=== PATIENT | male | born 1955 | race Caucasian/White ===

== ENCOUNTER → 2018-08-20 | Outpatient (REF) | payer MEDICARE ==
[2018-08-20 12:14] LABS: BASO # 0.1 10^3/uL (0.0-0.2); BASO % 0.7 % (0.0-1.0); EOS # 0.4 10^3/uL (0.0-0.50); EOS % 3.9 % (0.0-3.0); HEMOGLOBIN 16.9 g/dl (13.5-17.5); LYMPH # 1.9 10^3/uL (1.5-4.5); LYMPH % 20.4 % (24.0-44.0); MEAN CORPUSCULAR HEMOGLOBIN 32.8 pg (27.0-33.0); MEAN CORPUSCULAR HGB CONC 34.5 g/dl (32.0-36.5); MEAN CORPUSCULAR VOLUME 95.1 fl (80.0-96.0); NEUTROPHILS % 63.5 % (36.0-66.0); PLATELET COUNT, AUTOMATED 171 10^3/uL (150-450); RED BLOOD COUNT 5.15 10^6/uL (4.30-6.10); WHITE BLOOD COUNT 9.5 10^3/uL (4.0-10.0)
[2018-08-20 12:36] LABS: ALBUMIN 3.8 GM/DL (3.2-5.2); ALT/SGPT 36 U/L (12-78); BILIRUBIN,TOTAL 0.6 MG/DL (0.2-1.0); BLOOD UREA NITROGEN 15 MG/DL (7-18); CALCIUM LEVEL 8.2 MG/DL (8.8-10.2); CARBON DIOXIDE LEVEL 27 MEQ/L (21-32); CHLORIDE LEVEL 106 MEQ/L (98-107); CHOLESTEROL LEVEL 167 MG/DL (<200); CHOLESTEROL RISK RATIO 3.479 (<5); CREATININE FOR GFR 1.13 MG/DL (0.70-1.30); FREE T4 0.97 NG/DL (0.76-1.46); GLOMERULAR FILTRATION RATE > 60.0 (>49); GLUCOSE, FASTING 101 MG/DL (70-100); HDL CHOLESTEROL 48 MG/DL (>40); LDL CHOLESTEROL 100 MG/DL (<100); NON-HDL-C 119 MG/DL; POTASSIUM SERUM 4.3 MEQ/L (3.5-5.1); SODIUM LEVEL 139 MEQ/L (136-145); TOTAL PROTEIN 7.3 GM/DL (6.4-8.2); TRIGLYCERIDES LEVEL 97 MG/DL (<150)
== END ==
LOC: M SFHCCLAY 08:20
PROVIDERS: ATTEND Nurse Practitioner Family
DX: R03.0 Elevated blood-pressure reading, without diagnosis of hypertension (principal); R06.09 Other forms of dyspnea; F17.200 Nicotine dependence, unspecified, uncomplicated

== ENCOUNTER → 2018-08-20 | Outpatient (CLI) | payer MEDICARE ==
--- NOTE | 2018-08-20 09:24 | REP ---
Chest two views HISTORY: Dyspnea Comparison: None The lungs are clear. The heart is normal in size. The pulmonary vasculature is normal in appearance. Degenerative change is present in the thoracic spine. The lungs are hyperinflated. IMPRESSION: No acute disease.
== END ==
LOC: M CLY 08:53
PROVIDERS: ATTEND Nurse Practitioner Family
DX: M51.34 Other intervertebral disc degeneration, thoracic region (principal); R06.09 Other forms of dyspnea; F17.200 Nicotine dependence, unspecified, uncomplicated
CPT/HCPCS: 71046; 80053; 80061; 84439; 84443; 85025; 90670; G0009; G0463

== ENCOUNTER → 2018-09-02 | Outpatient (CLI) | payer MEDICARE ==
--- NOTE | 2018-09-02 13:31 | REP ---
Clinical: Lung screening. History smoking. Comparison: None Technique: Axial low-dose noncontrast images from the thoracic inlet to the upper abdomen using lung screening technique. Findings: The lung alvarado demonstrate moderate to advanced COPD/emphysematous changes including mild biapical scarring and scattered bronchiectasis. There is a 7 mm noncalcified nodule in the left lower lobe (image 78). Impression: Lung-RADS category IV. Recommendations include 3-month follow-up low-dose CT evaluation. Electronically Signed by Feliciano Van MD 09/02/2018 01:23 P
== END ==
LOC: M RAD 12:45
PROVIDERS: ATTEND Nurse Practitioner Family
DX: J44.9 Chronic obstructive pulmonary disease, unspecified (principal); Z87.891 Personal history of nicotine dependence

== ENCOUNTER → 2018-09-14 | Outpatient (CLI) | payer MEDICARE ==
--- NOTE | 2018-09-14 13:07 | PFTRPT ---
Height: 67.00 Inches Weight: 157.00 Lbs BSA: 1.82 Diagnosis: R06.09 DATE OF PROCEDURE: 09/14/2018 ORDERED BY: Eleanor Moss Spirometry: Pre and post bronchodilator study of excellent technical quality. Forced vital capacity normal. FEV1 out of proportion. Obstructive index is, therefore, reduced. Flow Volume Loop: Expiratory limb of the flow volume loop is consistent with significant flow rate limitation. Significant bronchodilator response is identified. Lung Volumes: Total lung capacity elevated. Residual volume consistent with air trapping. Diffusing Capacity: Diffusing capacity severely reduced and does not correct for alveolar volume. Hemoglobin: No hemoglobin available for correction. Airway Mechanics: Airway resistance and conductance are normal. IMPRESSION: Severe obstructive ventilatory impairment with underlying air trapping and decreasing capacity impairment suggesting emphysema. Favorable bronchodilator response. Please correlate clinically. MTDD
== END ==
LOC: M CARPUL 12:29
PROVIDERS: ATTEND Nurse Practitioner Family
DX: R06.09 Other forms of dyspnea (principal)

== ENCOUNTER → 2018-11-13 | Outpatient (REF) | payer MEDICARE ==
[2018-11-13 17:16] LABS: BLOOD UREA NITROGEN 16 MG/DL (7-18); CREATININE FOR GFR 1.07 MG/DL (0.70-1.30); GLOMERULAR FILTRATION RATE > 60.0 (>49)
== END ==
LOC: M SFHCCLAY 13:26
PROVIDERS: ATTEND Nurse Practitioner Family
DX: F17.200 Nicotine dependence, unspecified, uncomplicated (principal); R91.1 Solitary pulmonary nodule

== ENCOUNTER → 2018-11-17 | Outpatient (CLI) | payer MEDICARE ==
[~2018-11-17] MED LIST: ISOVUE-370 76% 100ML VIAL (Q9967) As Ordered ONE
--- NOTE | 2018-11-17 18:50 | REP ---
CT chest with IV contrast: History: Pulmonary nodule. Comparison chest CT study is a screening exam from September 02, 2018. This study showed a 7 mm nodule in the left lower lobe. CT contrast dose: 75 mL of intravenous Isovue 370. CT findings: There is a new somewhat nodular infiltrate in the left lower lobe consistent with pneumonia. This is more posterior than the nodule. The nodule itself persists and is felt to be unchanged. It measures 7 mm in greatest diameter as before. There are advanced emphysematous changes and there is hyperinflation overall. No hilar or mediastinal mass or adenopathy is observed. No adrenal lesion is seen. There is a small cyst in the right lobe of the liver, 1.2 cm in greatest diameter. There is a another smaller cyst in the left lobe near the dome of the diaphragm. The visualized upper abdominal structures are otherwise unremarkable. No extrathoracic mass or adenopathy is seen. Bone window settings show no bony destructive lesion. Impression: Stable 7 mm nodule left lower lobe of the lung unchanged in the 3-month interval since the prior study. There is a new infiltrate more superiorly in the left lower lobe consistent with a focus of pneumonia. There is advanced COPD and emphysema. Follow-up chest CT study for the left lower lobe nodule suggested 6 months. Electronically Signed by Abraham Tobar MD 11/18/2018 09:09 A
== END ==
LOC: M RAD 14:05
PROVIDERS: ATTEND Nurse Practitioner Family
DX: R91.1 Solitary pulmonary nodule (principal)
CPT/HCPCS: 71260; Q9967

== ENCOUNTER → 2019-05-17 | Outpatient (CLI) | payer MEDICARE ==
--- NOTE | 2019-05-17 18:45 | REP ---
CT of the chest without IV contrast for lung nodule. Follow-up will: There are the following lung nodules: The image 20, left upper lobe posteriorly, 3.4 mm calcified granuloma, unchanged. Image 22, right upper lobe medially, 9 mm, new. Image 43, superior segment right lower lobe medially, 14 mm, new. Image 54, left lower lobe, 9.9 mm, new. Image 78, left lower lobe, 7 mm, unchanged. Image 91, left lower lobe, pleural-based, 9 mm, unchanged. There is extensive bullous replacement of the lung parenchyma. This is unchanged. There are no acute infiltrates. There are no pleural effusions. There is no mediastinal lymph node enlargement. There are normal size lymph nodes, unchanged. No axillary lymph node enlargement. The study is insensitive for hilar lymph node enlargement in the absence of IV contrast. The unenhanced thoracic aorta is unremarkable except for occasional calcified atheroma. Cardiac size is normal. There is no pericardial effusion. Upper abdomen: There is no adrenal mass. There is hepato steatosis. The visualized upper abdomen is otherwise unremarkable. Impression: Multiple lung nodules as described. Some are new, others are unchanged. On the 11/17/2018 there was a new irregular nodule in the left lower lobe on image 57. This nodule is no longer present, likely transient infiltrate/atelectasis. However, just anteromedial to this nodule's previous location, there is a new 9.9 mm nodule on image 54 today. There are also new nodules on images 22 and 43. Electronically Signed by Silvio Mitchell MD 05/17/2019 06:38 P
== END ==
LOC: M RAD 17:27
PROVIDERS: ATTEND Nurse Practitioner Family
DX: R91.1 Solitary pulmonary nodule (principal)

== ENCOUNTER → 2020-01-18 | Outpatient (CLI) | payer MEDICARE ==
--- NOTE | 2020-01-18 10:28 | REP ---
INDICATION: PULMONARY NODULES. COMPARISON: 05/17/2019, 11/17/2018 TECHNIQUE: Noncontrast scanning through the chest with coronal sagittal reconstructions. FINDINGS: Hyperinflation and COPD are again noted. Calcified granuloma posterior left upper lobe is unchanged is apical pleuroparenchymal scarring unchanged. The 9 mm nodule in the right upper lobe on previous study is 7 mm. In image 22 today a new lobulated linear density on image 25 right upper lobe 13 mm in greatest length. It may be two nodules immediately adjacent. On image 29 a pleural-based 4 mm nodule is unchanged. 14 mm density the previous study in the superior segment of the right upper lobe is decreased in size suggesting improving nodular infiltrate with residual scar on image 44. A 6 mm nodule in the right lower lobe in image 86 is unchanged. Calcified granuloma above the right diaphragm can seen on image 88. Pleural based nodule mid axillary line in the lateral basal segment left lower lobe on image 90 unchanged. The 7 mm nodule left lower lobe image 78 is also unchanged. And adjacent 3 mm nodule is stable as well. The 10 mm nodule on image 54 the left lower lobe appears to have changed in configuration is slightly more rounded and measures only 7 mm in greatest diameter. There is a new curvilinear fibrotic area in the left upper lobe on image 19. Diffuse bullous and emphysematous changes are noted. No calcified pleural plaque, pleural based mass or acute infiltrate. No pleural effusion or pneumothorax the heart is not enlarged no pericardial thickening or effusion no pathologic sized mediastinal, hilar or axillary adenopathy. Adrenal glands are intact there is fatty change of the liver as before no focal hepatic lesion or biliary dilatation gallbladder segments visualized without calcified stone spleen unremarkable adrenal glands normal. Upper poles of kidneys and pancreas intact no hiatal hernia. There is some chronic degenerative changes in the spine and shoulders but no new or acute findings in the bony chest IMPRESSION: : 1. Multiple lung nodules as described. Most of these are stable or slightly smaller there are a couple of new areas with nodular at fibro atelectatic change. 2. COPD with bullous emphysematous changes. No other significant chest finding. 3. Degenerative changes in the spine and shoulders. No mediastinal or hilar adenopathy. Fatty change of the liver. <Electronically signed by Gama Morton > 01/18/20 1024
== END ==
LOC: M RAD 08:58
PROVIDERS: ATTEND Nurse Practitioner Family
DX: R91.1 Solitary pulmonary nodule (principal)

== ENCOUNTER → 2020-07-03 | Outpatient (REF) | payer MEDICARE ==
[2020-07-03 11:28] LABS: BASO # 0.1 10^3/uL (0.0-0.2); BASO % 0.7 % (0.0-1.0); EOS # 0.3 10^3/uL (0.0-0.5); EOS % 3.7 % (0.0-3.0); HEMATOCRIT 49.1 % (42.0-52.0); HEMOGLOBIN 16.5 g/dl (13.5-17.5); LYMPH # 2.1 10^3/uL (1.5-5.0); LYMPH % 23.8 % (24.0-44.0); MEAN CORPUSCULAR HEMOGLOBIN 33.2 pg (27.0-33.0); MEAN CORPUSCULAR HGB CONC 33.6 g/dl (32.0-36.5); MEAN CORPUSCULAR VOLUME 98.8 fl (80.0-96.0); MONO # 1.2 10^3/uL (0.0-0.8); MONO % 13.2 % (2.0-8.0); NEUTROPHILS # 5.2 10^3/uL (1.5-8.5); PLATELET COUNT, AUTOMATED 181 10^3/uL (150-450); RED BLOOD COUNT 4.97 10^6/uL (4.30-6.10); WHITE BLOOD COUNT 8.9 10^3/uL (4.0-10.0)
[2020-07-03 11:45] LABS: HEMOGLOBIN A1c 6.2 %
[2020-07-03 12:24] LABS: ALT/SGPT 61 U/L (12-78); BILIRUBIN,TOTAL 0.5 MG/DL (0.2-1.0); BLOOD UREA NITROGEN 13 MG/DL (7-18); CALCIUM LEVEL 9.1 MG/DL (8.8-10.2); CARBON DIOXIDE LEVEL 29 MEQ/L (21-32); CHLORIDE LEVEL 106 MEQ/L (98-107); CHOLESTEROL LEVEL 192 MG/DL (<200); CHOLESTEROL RISK RATIO 4.465 (<5); CREATININE FOR GFR 1.05 MG/DL (0.70-1.30); GLOMERULAR FILTRATION RATE > 60.0 (>49); GLUCOSE, FASTING 108 MG/DL (70-100); HDL CHOLESTEROL 43 MG/DL (>40); LDL CHOLESTEROL 106 MG/DL (<100); NON-HDL-C 149 MG/DL; POTASSIUM SERUM 4.1 MEQ/L (3.5-5.1); SODIUM LEVEL 141 MEQ/L (136-145); TOTAL PROTEIN 7.8 GM/DL (6.4-8.2); TRIGLYCERIDES LEVEL 213 MG/DL (<150)
== END ==
LOC: M SFHCCLAY 09:18
PROVIDERS: ATTEND Nurse Practitioner Family
DX: J44.9 Chronic obstructive pulmonary disease, unspecified (principal); F17.200 Nicotine dependence, unspecified, uncomplicated; R91.1 Solitary pulmonary nodule; G25.0 Essential tremor; L30.9 Dermatitis, unspecified; R12 Heartburn; E78.00 Pure hypercholesterolemia, unspecified

== ENCOUNTER → 2020-07-18 | Outpatient (CLI) | payer MEDICARE ==
--- NOTE | 2020-07-19 10:43 | ECHO ---
DATE OF PROCEDURE: 07/18/2020 Age: 65 Gender: Male Height: 170 cm Weight: 87 kg REFERRING PHYSICIAN: Eleanor Moss. INDICATION: Hypertension. MEASUREMENTS: IVS 1.1 cm LV 3.8 cm LVPW 1.0 cm LA 3.0 cm Aorta 3.2 cm Mitral E wave velocity 60 A wave 67 E prime septal 5.3 E prime lateral 9.5 FINDINGS: This study is of fair technical quality. Patient is in sinus rhythm. Left ventricle is normal size and has normal systolic function, estimated LVEF 60 to 65%. Right ventricle also appears to have grossly normal size and systolic function. Both atria appear normal. Aortic valve is mildly sclerotic but mobility is preserved. Mitral and tricuspid valves appear normal. Pulmonic valve was not well seen. No pericardial effusion is present. Inferior vena cava was not visualized. Aortic root is of normal size. Aortic arch and abdominal aorta were not well seen. Doppler interrogation of aortic valve reveals no stenosis or insufficiency. There is trace mitral and trace tricuspid insufficiency. Unfortunately, quality of TR jet was not sufficient to adequately estimate pulmonary artery pressure. Mitral inflow pattern and tissue Doppler imaging of mitral annulus revealed grade 1 diastolic dysfunction. CONCLUSIONS: 1. Study is of acceptable technical quality. Patient is in sinus rhythm. 2. Normal LV size with normal LV systolic function. Grade 1 diastolic dysfunction. 3. No significant valvular disease. 4. Unable to estimate central venous pressure and pulmonary artery pressure. MTDD
== END ==
LOC: M CARPUL 13:05
PROVIDERS: ATTEND Nurse Practitioner Family
DX: I10 Essential (primary) hypertension (principal)

== ENCOUNTER → 2021-01-01 | Outpatient (CLI) | payer MEDICARE ==
--- NOTE | 2021-01-01 15:32 | REP ---
INDICATION: PULMONARY NODULE COMPARISON: Multiple the latest 01/18/2020 also without contrast TECHNIQUE: Standard helical technique without contrast FINDINGS: The mediastinum and pulmonary gita are stable. No mass or adenopathy has developed. There are no pleural or pericardial effusions. There is no significant change in appearance of the imaged upper abdomen or imaged osseous structures. There is diffuse fatty infiltration of the liver. There are spinal degenerative changes status quo. Evaluation of the lung alvarado shows advanced emphysematous changes and lung field hyperexpansion status quo. The pleural base nodule in the left lower lobe is unchanged. The triangular-shaped nodule in the right lower lobe is unchanged. The 7 mm size oval-shaped nodule in the lateral basal segment of the left lower lobe is unchanged. There is a new 5 mm size nodule just superior to this but also in the lateral basal segment of the left lower lobe. The asymmetric nodule seen more superiorly in the region of the superior segment of the left lower lobe is no longer present. The ground-glass opacity seen in the superior segment of the right lower lobe medially is unchanged. The asymmetric density seen centrally in the right upper lobe has gotten smaller. The asymmetric density seen more superior and medial to this is unchanged. The nodular density seen in the anterior apicoposterior segment of the left upper lobe is unchanged. There is, however, a new nodular density in the left lung apicoposterior segment just posterior to the aforementioned. This measures 1 cm. There is a new pleural based asymmetric density seen in the posterior segment of the right upper lobe. There is mild cylindrical bronchiectasis status quo. IMPRESSION: There are multiple pulmonary nodules as described above. Some have developed while others have resolved. There is no revised Fleischner society criteria on the recommendation for follow-up of such diffuse abnormalities. Follow-up should be based on clinical assessment. If necessary obtain short interval follow-up in 3 months with consideration made for PET-CT at this time if clinically relevant. Other findings as described above. <Electronically signed by Gerardo Leal > 01/01/21 [id number]
== END ==
LOC: M RAD 13:21
PROVIDERS: ATTEND Nurse Practitioner Family
DX: R91.1 Solitary pulmonary nodule (principal)

== ENCOUNTER → 2021-04-19 | Outpatient (CLI) | payer MEDICARE | LOC: M PLAIMG 14:41 | PROVIDERS: ATTEND Internal Medicine Pulmonary Disease | DX: R91.8 Other nonspecific abnormal finding of lung field (principal) ==

== ENCOUNTER → 2021-08-21 | Outpatient (REF) | payer MEDICARE ==
[2021-08-21 15:52] LABS: BASO # 0.1 10^3/uL (0.0-0.2); BASO % 0.6 % (0.0-1.0); EOS # 0.3 10^3/uL (0.0-0.5); HEMOGLOBIN 16.9 g/dl (13.5-17.5); LYMPH # 2.1 10^3/uL (1.5-5.0); LYMPH % 21.8 % (24.0-44.0); MEAN CORPUSCULAR HEMOGLOBIN 34.3 pg (27.0-33.0); MEAN CORPUSCULAR HGB CONC 34.5 g/dl (32.0-36.5); MEAN CORPUSCULAR VOLUME 99.6 fl (80.0-96.0); MONO # 1.2 10^3/uL (0.0-0.8); NEUTROPHILS % 62.1 % (36.0-66.0); PLATELET COUNT, AUTOMATED 156 10^3/uL (150-450); RED BLOOD COUNT 4.92 10^6/uL (4.30-6.10); WHITE BLOOD COUNT 9.7 10^3/uL (4.0-10.0)
[2021-08-21 16:44] LABS: HEMOGLOBIN A1c 6.4 %
[2021-08-21 17:33] LABS: ALT/SGPT 57 U/L (12-78); BILIRUBIN,TOTAL 0.7 MG/DL (0.2-1.0); BLOOD UREA NITROGEN 15 MG/DL (7-18); CALCIUM LEVEL 8.5 MG/DL (8.8-10.2); CARBON DIOXIDE LEVEL 20 MEQ/L (21-32); CHLORIDE LEVEL 108 MEQ/L (98-107); CHOLESTEROL LEVEL 162 MG/DL (<200); CHOLESTEROL RISK RATIO 3.951 (<5); CREATININE FOR GFR 1.22 MG/DL (0.70-1.30); FREE T4 0.95 NG/DL (0.76-1.46); GLOMERULAR FILTRATION RATE > 60.0 (>49); GLUCOSE, FASTING 116 MG/DL (70-100); HDL CHOLESTEROL 41 MG/DL (>40); LDL CHOLESTEROL 85 MG/DL (<100); NON-HDL-C 121 MG/DL; POTASSIUM SERUM 4.5 MEQ/L (3.5-5.1); SODIUM LEVEL 139 MEQ/L (136-145); TOTAL PROTEIN 7.4 GM/DL (6.4-8.2); TRIGLYCERIDES LEVEL 178 MG/DL (<150)
== END ==
LOC: M SFHCCLAY 10:11
PROVIDERS: ATTEND Nurse Practitioner Family
DX: J44.9 Chronic obstructive pulmonary disease, unspecified (principal); I10 Essential (primary) hypertension; R73.03 Prediabetes; R91.1 Solitary pulmonary nodule

== ENCOUNTER → 2022-01-01 | Outpatient (CLI) | payer MEDICARE | LOC: M RAD 14:30 | PROVIDERS: ATTEND Internal Medicine Pulmonary Disease | DX: R91.8 Other nonspecific abnormal finding of lung field (principal) ==

== ENCOUNTER → 2022-06-04 | Outpatient (REF) | payer MEDICARE ==
[2022-06-04 17:48] LABS: BASO # 0.1 10^3/uL (0.0-0.2); BASO % 0.7 % (0.0-1.0); EOS # 0.2 10^3/uL (0.0-0.5); EOS % 2.5 % (0.0-3.0); HEMATOCRIT 47.6 % (42.0-52.0); HEMOGLOBIN 16.3 g/dl (13.5-17.5); LYMPH # 1.8 10^3/uL (1.5-5.0); LYMPH % 18.7 % (24.0-44.0); MEAN CORPUSCULAR HEMOGLOBIN 34.2 pg (27.0-33.0); MEAN CORPUSCULAR HGB CONC 34.2 g/dl (32.0-36.5); MEAN CORPUSCULAR VOLUME 99.8 fl (80.0-96.0); MONO # 1.2 10^3/uL (0.0-0.8); MONO % 12.1 % (2.0-8.0); NEUTROPHILS # 6.3 10^3/uL (1.5-8.5); NEUTROPHILS % 65.3 % (36.0-66.0); PLATELET COUNT, AUTOMATED 167 10^3/uL (150-450); RED BLOOD COUNT 4.77 10^6/uL (4.30-6.10); WHITE BLOOD COUNT 9.7 10^3/uL (4.0-10.0)
[2022-06-04 17:50] LABS: FREE T4 1.03 NG/DL (0.89-1.76); THYROID STIMULATING HORMONE 4.511 uIU/ML (0.55-4.78)
[2022-06-04 17:51] LABS: ALBUMIN 3.9 G/DL (3.2-5.2); ALKALINE PHOSPHATASE 87 U/L (46-116); ALT/SGPT 71 U/L (7.0-40); AST/SGOT 42 U/L (<34); BILIRUBIN,TOTAL 0.6 MG/DL (0.3-1.2); BLOOD UREA NITROGEN 12 MG/DL (9-23); CALCIUM LEVEL 9.2 MG/DL (8.3-10.6); CARBON DIOXIDE LEVEL 23 MMOL/L (20-31); CHLORIDE LEVEL 104 MMOL/L (98-107); CHOLESTEROL LEVEL 151 MG/DL (<200); CHOLESTEROL RISK RATIO 3.51 (<5); CREATININE FOR GFR 1.01 MG/DL (0.70-1.30); GLOMERULAR FILTRATION RATE > 60.0 (>49); GLUCOSE, FASTING 118 MG/DL (74-106); HDL CHOLESTEROL 42.9 MG/DL (>40); LDL CHOLESTEROL 75.7 MG/DL (<100); NON-HDL-C 108.1 MG/DL; POTASSIUM SERUM 4.5 MMOL/L (3.5-5.1); SODIUM LEVEL 139 MMOL/L (136-145); TRIGLYCERIDES LEVEL 162 MG/DL (<150)
[2022-06-04 18:14] LABS: HEMOGLOBIN A1c 6.6 % (4.0-6.0)
== END ==
LOC: M SFHCCLAY 10:46
PROVIDERS: ATTEND Nurse Practitioner Family
DX: J44.9 Chronic obstructive pulmonary disease, unspecified (principal); R91.1 Solitary pulmonary nodule; I10 Essential (primary) hypertension; R73.03 Prediabetes

== ENCOUNTER → 2022-07-11 | Outpatient (CLI) | payer MEDICARE | LOC: M PLAIMG 12:47 | PROVIDERS: ATTEND Internal Medicine Pulmonary Disease | DX: R91.8 Other nonspecific abnormal finding of lung field (principal) ==

== ENCOUNTER → 2022-10-31 | Outpatient (CLI) | payer MEDICARE | LOC: M RAD 13:30 | PROVIDERS: ATTEND Internal Medicine Pulmonary Disease | DX: R91.8 Other nonspecific abnormal finding of lung field (principal) ==

== ENCOUNTER 2022-11-13 23:52 | Inpatient (IN) | payer MEDICARE ==
[~2022-11-13] VITALS: Ht 170.2 cm; Wt 81.0 kg
[2022-11-14] MEDS ORDERED: ALBUTEROL SULFATE 2.5MG/0.5ML INH NEB SOLN INH ONE (00:05)
[2022-11-14] MEDS ORDERED: IPRATROPIUM 0.5MG/ALBUTEROL 2.5MG INH SOL UD 3ML (DUONEB) NEB ONE (00:05)
[2022-11-14 00:16] LABS: ABG BASE EXCESS -4.1 (-2.0-2.0); ABG HCO3 17.9 MMOL/L (22.0-26.0); ABG O2 SATURATION 92.2 % (95.0-99.0); ABG PARTIAL PRESSURE CO2 26.4 mmHg (35.0-45.0); ABG PARTIAL PRESSURE O2 61.7 mmHg (75.0-100.0); ABG TOTAL CO2 18.7 MMOL/L (23.0-31.0)
[2022-11-14 00:44] LABS: LIPASE 27 U/L (12-53)
[2022-11-14 00:45] LABS: CK-MB VALUE MASS 1.8 NG/ML (<3.6)
[2022-11-14 00:47] LABS: ALBUMIN 2.9 G/DL (3.2-5.2); ALKALINE PHOSPHATASE 75 U/L (46-116); ALT/SGPT 36 U/L (7.0-40); AST/SGOT 21 U/L (<34); BILIRUBIN,DIRECT 0.8 MG/DL (<0.4); BILIRUBIN,TOTAL 1.6 MG/DL (0.3-1.2); BLOOD UREA NITROGEN 19 MG/DL (9-23); CALCIUM LEVEL 8.2 MG/DL (8.3-10.6); CARBON DIOXIDE LEVEL 23 MMOL/L (20-31); CHLORIDE LEVEL 101 MMOL/L (98-107); CPK CREATINE PHOSPHOKINASE 56 U/L (46-171); CREATININE FOR GFR 0.97 MG/DL (0.70-1.30); GLOMERULAR FILTRATION RATE > 60.0 (>49); GLUCOSE, FASTING 129 MG/DL (74-106); MB/CK RELATIVE INDEX 3.21 (< OR =4); SODIUM LEVEL 136 MMOL/L (136-145); TOTAL PROTEIN 6.7 G/DL (5.7-8.2)
[2022-11-14 00:48] LABS: INR 1.17; PROTHROMBIN TIME 14.6 SECONDS (12.5-14.5)
[2022-11-14 00:49] LABS: THYROID STIMULATING HORMONE 3.525 uIU/ML (0.55-4.78)
[2022-11-14 00:49] LABS: PARTIAL THROMBOPLASTIN TIME 28.4 SECONDS (24.8-34.2)
[2022-11-14 00:53] LABS: PROCALCITONIN 0.48 ng/ml
[2022-11-14] MEDS ORDERED: ONDANSETRON 4MG 2ML VIAL IV ONE (00:55)
[2022-11-14] MEDS ORDERED: ONDANSETRON 4MG 2ML VIAL As Ordered ONE (00:55)
[2022-11-14] MEDS ORDERED: MORPHINE 4 MG/ML 1ML VIAL As Ordered ONE (00:55)
[2022-11-14] MEDS ORDERED: MORPHINE 2 MG/ML 1ML VIAL IV PRN (00:55)
[2022-11-14 01:03] LABS: BASO % 0.2 % (0.0-1.0); EOS # 0.2 10^3/uL (0.0-0.5); EOS % 1.3 % (0.0-3.0); HEMATOCRIT 45.9 % (42.0-52.0); HEMOGLOBIN 15.5 g/dl (13.5-17.5); LYMPH # 1.3 10^3/uL (1.5-5.0); LYMPH % 7.7 % (24.0-44.0); MEAN CORPUSCULAR HEMOGLOBIN 34.7 pg (27.0-33.0); MEAN CORPUSCULAR HGB CONC 33.8 g/dl (32.0-36.5); MEAN CORPUSCULAR VOLUME 102.7 fl (80.0-96.0); MONO % 15.6 % (2.0-8.0); NEUTROPHILS # 12.2 10^3/uL (1.5-8.5); NEUTROPHILS % 74.5 % (36.0-66.0); PLATELET COUNT, AUTOMATED 216 10^3/uL (150-450); RED BLOOD COUNT 4.47 10^6/uL (4.30-6.10); WHITE BLOOD COUNT 16.4 10^3/uL (4.0-10.0)
[2022-11-14] MEDS ORDERED: ISOVUE-370 76% 100ML VIAL As Ordered ONE (01:11)
[2022-11-14 02:25] LABS: MONO # 2.6 10^3/uL (0.0-0.8)
[2022-11-14] MEDS ORDERED: PIPERACILLIN/TAZOBACTAM SOD 4.5 GM in D5W MINI-BAG PLUS 50 ML IV ONE (02:30)
[2022-11-14] MEDS ORDERED: NS 1,000 ML IV ONE (02:30)
[2022-11-14] MEDS ORDERED: MAALOX 30 ML SUSP *UDC PO PRN (02:45)
[2022-11-14] MEDS ORDERED: ACETAMINOPHEN TAB 650MG DOSE (2X325MG) PO PRN (02:45)
[2022-11-14] MEDS ORDERED: MOM 30ML SUSPENSION UDC PO PRN (02:45)
[2022-11-14 03:23] LABS: CK-MB VALUE MASS 1.5 NG/ML (<3.6)
[2022-11-14 03:25] LABS: CPK CREATINE PHOSPHOKINASE 44 U/L (46-171)
[2022-11-14] MEDS: IPRATROPIUM 0.5MG/ALBUTEROL 2.5MG INH SOL UD 3ML (DUONEB) NEB SCH ×2 (03:39→07:12)
[2022-11-14] MEDS ORDERED: AMOX875T2 PO (03:51)
[2022-11-14] MEDS ORDERED: LOSA50TA28 PO (03:51)
[2022-11-14] MEDS ORDERED: ALBU8.5H INH (03:51)
[2022-11-14] MEDS ORDERED: INCR1INH INH (03:51)
[2022-11-14] MEDS ORDERED: BREO1INH3 INH (03:51)
[2022-11-14] MEDS ORDERED: HOME MED LIST COMPLETE! XX SCH (03:55)
[2022-11-14] MEDS ORDERED: methylPREDNISolone 125MG 2ML VIAL IV ONE (04:00)
[2022-11-14 04:03] VITALS: BP 153/72; TEMP 97.2; O2SAT 95
[2022-11-14] MEDS: LR 1,000 ML IV SCH ×3 (04:18→16:04)
[2022-11-14 05:29] LABS: HEMATOCRIT 40.5 % (42.0-52.0); HEMOGLOBIN 13.7 g/dl (13.5-17.5); MEAN CORPUSCULAR HEMOGLOBIN 34.8 pg (27.0-33.0); MEAN CORPUSCULAR HGB CONC 33.8 g/dl (32.0-36.5); MEAN CORPUSCULAR VOLUME 102.8 fl (80.0-96.0); PLATELET COUNT, AUTOMATED 188 10^3/uL (150-450); RED BLOOD COUNT 3.94 10^6/uL (4.30-6.10); WHITE BLOOD COUNT 13.2 10^3/uL (4.0-10.0)
[2022-11-14 05:59] LABS: ALBUMIN 2.4 G/DL (3.2-5.2); ALKALINE PHOSPHATASE 64 U/L (46-116); ALT/SGPT 32 U/L (7.0-40); AST/SGOT 30 U/L (<34); BILIRUBIN,TOTAL 1.1 MG/DL (0.3-1.2); BLOOD UREA NITROGEN 19 MG/DL (9-23); CALCIUM LEVEL 7.4 MG/DL (8.3-10.6); CARBON DIOXIDE LEVEL 18 MMOL/L (20-31); CHLORIDE LEVEL 104 MMOL/L (98-107); CREATININE FOR GFR 0.86 MG/DL (0.70-1.30); GLOMERULAR FILTRATION RATE > 60.0 (>49); GLUCOSE, FASTING 263 MG/DL (74-106); POTASSIUM SERUM 4.2 MMOL/L (3.5-5.1); SODIUM LEVEL 135 MMOL/L (136-145); TOTAL PROTEIN 5.9 G/DL (5.7-8.2)
[2022-11-14 08:00] VITALS: BP 138/72; TEMP 97.5; O2SAT 96
[2022-11-14] MEDS ORDERED: BUDESONIDE 0.5 MG/2 ML INHALATION SUSPENSION INH SCH (08:00)
[2022-11-14] MEDS: TIOTROPIUM INHALER/CAPSULE (SPIRIVA) INH SCH (08:00)
[2022-11-14 08:45] LABS: HEMATOCRIT 40.2 % (42.0-52.0); HEMOGLOBIN 13.7 g/dl (13.5-17.5); MEAN CORPUSCULAR HEMOGLOBIN 34.5 pg (27.0-33.0); MEAN CORPUSCULAR HGB CONC 34.1 g/dl (32.0-36.5); MEAN CORPUSCULAR VOLUME 101.3 fl (80.0-96.0); PLATELET COUNT, AUTOMATED 181 10^3/uL (150-450); RED BLOOD COUNT 3.97 10^6/uL (4.30-6.10); WHITE BLOOD COUNT 12.4 10^3/uL (4.0-10.0)
[2022-11-14] MEDS: TRIAMCINOLONE ACET 0.1% CREAM 80GM TOP SCH ×2 (09:00→20:32)
[2022-11-14] MEDS ORDERED: APIXABAN 5 MG TAB (ELIQUIS) PO SCH (09:00)
[2022-11-14] MEDS ORDERED: HEPARIN SOD (PORCINE) 5000UNITS/ML 1ML VIAL/SYRINGE IV PRN (09:00)
[2022-11-14] MEDS ORDERED: HEPARIN SOD (PORCINE) 5000UNITS/ML 1ML VIAL/SYRINGE IV ONE (09:00)
[2022-11-14] MEDS ORDERED: SODIUM CHLORIDE 0.9% 1000ML IV ONE ×2 (09:05→20:10)
[2022-11-14] MEDS: HEPARIN DRIP 25,000 UNITS in IV 1 EA IV SCH (09:31)
[2022-11-14] MEDS: LOSARTAN 50MG TABLET PO SCH (09:35)
[2022-11-14] MEDS: PIPERACILLIN/TAZOBACTAM SOD 3.375 GM in D5W MINI-BAG PLUS 50 ML IV SCH ×3 (09:36→20:24)
[2022-11-14] MEDS ORDERED: methylPREDNISolone 40MG 1ML VIAL IV SCH (10:00)
[2022-11-14 12:00] VITALS: BP 139/67; TEMP 97.2; O2SAT 95
[2022-11-14] MEDS: DOXYCYCLINE HYCLATE 100MG TABLET PO SCH ×2 (12:13→20:26)
[2022-11-14 12:52] LABS: APPEARANCE, BODY FLUID CLEAR (CLEAR); PLEURAL FL COLOR YELLOW (COLORLESS); SOURCE, BODY FLUID PLEURAL
[2022-11-14 13:07] LABS: SOURCE, BODY FLUID ALBUMIN PLEURAL
[2022-11-14 13:12] LABS: SOURCE, BODY FLUID GLUCOSE PLEURAL; SOURCE, BODY FLUID TRIG PLEURAL; TRIGLYCERIDE, BODY FLUID 71 MG/DL (NOT ESTABLISHED)
[2022-11-14 13:14] LABS: AMYLASE, BODY FLUID 36 U/L (NOT ESTABLISHED); CHOLESTEROL, BODY FLUID 73 MG/DL (NOT ESTABLISHED); SOURCE, BODY FLUID AMYLASE PLEURAL; SOURCE, BODY FLUID CHOL PLEURAL; SOURCE, BODY FLUID TOT PROTEIN PLEURAL; TOTAL PROTEIN, BODY FLUID 4.5 G/DL (NOT ESTABLISHED)
[2022-11-14] MEDS ORDERED: GLUCOSE 4GM CHEW TABLET PO PRN (13:20)
[2022-11-14] MEDS ORDERED: DEXTROSE 50% 50ML SYRINGE IV PRN (13:20)
[2022-11-14] MEDS ORDERED: GLUCAGON INJ 1MG VIAL SC PRN (13:20)
[2022-11-14 13:23] LABS: LDH, BODY FLUID > 750 U/L (NOT ESTABLISHED); SOURCE, BODY FLUID LDH PLEURAL
[2022-11-14] MEDS ORDERED: IPRATROPIUM 0.5MG/ALBUTEROL 2.5MG INH SOL UD 3ML (DUONEB) NEB SCH (14:00)
[2022-11-14 15:19] LABS: PH BODY FLUID 7.749 UNITS (NOT ESTABLISHED); SOURCE, BODY FLUID pH PLEURAL
[2022-11-14] MEDS ORDERED: IPRATROPIUM 0.5MG/ALBUTEROL 2.5MG INH SOL UD 3ML (DUONEB) NEB PRN (15:40)
[2022-11-14 16:00] VITALS: BP 129/64; TEMP 97.5; O2SAT 95
[2022-11-14] MEDS: INSULIN LISPRO (NovoLOG) PER UNIT SC SCH ×2 (16:51→20:25)
[2022-11-14 20:00] VITALS: BP 164/72; TEMP 97.3; O2SAT 96
[2022-11-14] MEDS ORDERED: SYMBICORT 80/4.5MCG INHALER 6GM INH SCH (20:00)
[2022-11-14] MEDS: ADVAIR HFA 230/21MCG INHALER INH SCH (20:22)
[2022-11-15] VITALS (7 sets, daily range): BP systolic 131–165; BP diastolic 61–77; TEMP 97.5–97.9; O2SAT 94–98
[2022-11-15] MEDS: PIPERACILLIN/TAZOBACTAM SOD 3.375 GM in D5W MINI-BAG PLUS 50 ML IV SCH ×4 (02:19→20:52)
[2022-11-15 05:11] LABS: BASO % 0.1 % (0.0-1.0); HEMATOCRIT 36.2 % (42.0-52.0); HEMOGLOBIN 12.4 g/dl (13.5-17.5); LYMPH # 1.2 10^3/uL (1.5-5.0); LYMPH % 5.8 % (24.0-44.0); MEAN CORPUSCULAR HEMOGLOBIN 34.5 pg (27.0-33.0); MEAN CORPUSCULAR HGB CONC 34.3 g/dl (32.0-36.5); MEAN CORPUSCULAR VOLUME 100.8 fl (80.0-96.0); MONO % 9.8 % (2.0-8.0); NEUTROPHILS # 16.7 10^3/uL (1.5-8.5); NEUTROPHILS % 83.1 % (36.0-66.0); PLATELET COUNT, AUTOMATED 223 10^3/uL (150-450); RED BLOOD COUNT 3.59 10^6/uL (4.30-6.10); WHITE BLOOD COUNT 20.1 10^3/uL (4.0-10.0)
[2022-11-15] MEDS: HEPARIN DRIP 25,000 UNITS in IV 1 EA IV SCH ×2 (05:15→18:46)
[2022-11-15 05:52] LABS: ALBUMIN 2.3 G/DL (3.2-5.2); ALKALINE PHOSPHATASE 58 U/L (46-116); ALT/SGPT 51 U/L (7.0-40); AST/SGOT 55 U/L (<34); BILIRUBIN,TOTAL 0.7 MG/DL (0.3-1.2); BLOOD UREA NITROGEN 17 MG/DL (9-23); CALCIUM LEVEL 7.6 MG/DL (8.3-10.6); CARBON DIOXIDE LEVEL 23 MMOL/L (20-31); CHLORIDE LEVEL 106 MMOL/L (98-107); CREATININE FOR GFR 0.76 MG/DL (0.70-1.30); GLOMERULAR FILTRATION RATE > 60.0 (>49); GLUCOSE, FASTING 178 MG/DL (74-106); MAGNESIUM LEVEL 2.2 MG/DL (1.8-2.4); POTASSIUM SERUM 3.6 MMOL/L (3.5-5.1); SODIUM LEVEL 137 MMOL/L (136-145); TOTAL PROTEIN 5.7 G/DL (5.7-8.2)
[2022-11-15] MEDS: ADVAIR HFA 230/21MCG INHALER INH SCH ×2 (07:25→20:02)
[2022-11-15] MEDS: TIOTROPIUM INHALER/CAPSULE (SPIRIVA) INH SCH (07:25)
[2022-11-15] MEDS: LOSARTAN 50MG TABLET PO SCH (08:52)
[2022-11-15] MEDS: INSULIN LISPRO (NovoLOG) PER UNIT SC SCH ×4 (08:52→20:40)
[2022-11-15] MEDS: DOXYCYCLINE HYCLATE 100MG TABLET PO SCH ×2 (08:52→20:52)
[2022-11-15] MEDS: TRIAMCINOLONE ACET 0.1% CREAM 80GM TOP SCH ×2 (08:53→20:52)
[2022-11-15] MEDS: PERCOCET 5MG/325MG TAB PO PRN (17:17)
[2022-11-15 19:07] LABS: MYCOPLASMA PNEUMONIAE IgG 708 U/mL (0-99); MYCOPLASMA PNEUMONIAE IgM <770 U/mL (0-769)
[2022-11-16] VITALS (10 sets, daily range): BP systolic 139–159; BP diastolic 66–99; TEMP 97.9–98.6; O2SAT 92–98
[2022-11-16] MEDS: PERCOCET 5MG/325MG TAB PO PRN (01:25)
[2022-11-16] MEDS: PIPERACILLIN/TAZOBACTAM SOD 3.375 GM in D5W MINI-BAG PLUS 50 ML IV SCH ×4 (03:47→20:06)
[2022-11-16 04:44] LABS: BASO % 0.2 % (0.0-1.0); EOS % 0.1 % (0.0-3.0); HEMOGLOBIN 12.5 g/dl (13.5-17.5); LYMPH # 1.8 10^3/uL (1.5-5.0); LYMPH % 13.2 % (24.0-44.0); MEAN CORPUSCULAR HEMOGLOBIN 34.6 pg (27.0-33.0); MEAN CORPUSCULAR HGB CONC 33.8 g/dl (32.0-36.5); MEAN CORPUSCULAR VOLUME 102.5 fl (80.0-96.0); MONO % 14.1 % (2.0-8.0); NEUTROPHILS # 9.9 10^3/uL (1.5-8.5); NEUTROPHILS % 71.6 % (36.0-66.0); PLATELET COUNT, AUTOMATED 232 10^3/uL (150-450); RED BLOOD COUNT 3.61 10^6/uL (4.30-6.10); WHITE BLOOD COUNT 13.8 10^3/uL (4.0-10.0)
[2022-11-16 05:35] LABS: ALBUMIN 2.3 G/DL (3.2-5.2); ALKALINE PHOSPHATASE 63 U/L (46-116); ALT/SGPT 96 U/L (7.0-40); AST/SGOT 68 U/L (<34); BILIRUBIN,TOTAL 0.7 MG/DL (0.3-1.2); BLOOD UREA NITROGEN 23 MG/DL (9-23); CALCIUM LEVEL 7.9 MG/DL (8.3-10.6); CARBON DIOXIDE LEVEL 22 MMOL/L (20-31); CHLORIDE LEVEL 107 MMOL/L (98-107); CREATININE FOR GFR 0.89 MG/DL (0.70-1.30); GLOMERULAR FILTRATION RATE > 60.0 (>49); GLUCOSE, FASTING 133 MG/DL (74-106); MAGNESIUM LEVEL 2.1 MG/DL (1.8-2.4); POTASSIUM SERUM 3.9 MMOL/L (3.5-5.1); SODIUM LEVEL 140 MMOL/L (136-145); TOTAL PROTEIN 5.4 G/DL (5.7-8.2)
[2022-11-16] MEDS: ADVAIR HFA 230/21MCG INHALER INH SCH ×2 (07:25→19:40)
[2022-11-16] MEDS: TIOTROPIUM INHALER/CAPSULE (SPIRIVA) INH SCH (07:25)
[2022-11-16] MEDS: INSULIN LISPRO (NovoLOG) PER UNIT SC SCH ×4 (07:30→21:00)
[2022-11-16] MEDS: HEPARIN DRIP 25,000 UNITS in IV 1 EA IV SCH (07:37)
[2022-11-16] MEDS: DOXYCYCLINE HYCLATE 100MG TABLET PO SCH ×2 (08:32→20:06)
[2022-11-16] MEDS: LOSARTAN 50MG TABLET PO SCH (08:33)
[2022-11-16] MEDS: TRIAMCINOLONE ACET 0.1% CREAM 80GM TOP SCH ×2 (08:39→20:07)
[2022-11-16] MEDS ORDERED: AMOX875T2 PO (09:40)
[2022-11-16] MEDS ORDERED: ELIQ5TAB PO (09:40)
[2022-11-16] MEDS: APIXABAN 5 MG TAB (ELIQUIS) PO SCH ×2 (14:09→20:06)
[2022-11-17 02:00] VITALS: BP 148/83; TEMP 98.8; O2SAT 94
[2022-11-17] MEDS: PIPERACILLIN/TAZOBACTAM SOD 3.375 GM in D5W MINI-BAG PLUS 50 ML IV SCH ×2 (02:50→08:17)
[2022-11-17 06:00] VITALS: BP 168/81; TEMP 98.6; O2SAT 97
[2022-11-17] MEDS: TIOTROPIUM INHALER/CAPSULE (SPIRIVA) INH SCH (07:18)
[2022-11-17] MEDS: ADVAIR HFA 230/21MCG INHALER INH SCH (07:18)
[2022-11-17 07:21] LABS: BASO % 0.3 % (0.0-1.0); EOS # 0.1 10^3/uL (0.0-0.5); EOS % 0.7 % (0.0-3.0); HEMATOCRIT 40.7 % (42.0-52.0); HEMOGLOBIN 13.8 g/dl (13.5-17.5); LYMPH # 1.4 10^3/uL (1.5-5.0); LYMPH % 13.4 % (24.0-44.0); MEAN CORPUSCULAR HEMOGLOBIN 34.2 pg (27.0-33.0); MEAN CORPUSCULAR HGB CONC 33.9 g/dl (32.0-36.5); MONO # 1.5 10^3/uL (0.0-0.8); NEUTROPHILS # 7.6 10^3/uL (1.5-8.5); NEUTROPHILS % 70.5 % (36.0-66.0); PLATELET COUNT, AUTOMATED 259 10^3/uL (150-450); RED BLOOD COUNT 4.03 10^6/uL (4.30-6.10); WHITE BLOOD COUNT 10.8 10^3/uL (4.0-10.0)
[2022-11-17] MEDS: INSULIN LISPRO (NovoLOG) PER UNIT SC SCH (07:30)
[2022-11-17 07:40] LABS: BLOOD UREA NITROGEN 16 MG/DL (9-23); CARBON DIOXIDE LEVEL 25 MMOL/L (20-31); CHLORIDE LEVEL 102 MMOL/L (98-107); CREATININE FOR GFR 0.94 MG/DL (0.70-1.30); GLOMERULAR FILTRATION RATE > 60.0 (>49); GLUCOSE, FASTING 98 MG/DL (74-106); POTASSIUM SERUM 3.6 MMOL/L (3.5-5.1); SODIUM LEVEL 137 MMOL/L (136-145)
[2022-11-17] MEDS: DOXYCYCLINE HYCLATE 100MG TABLET PO SCH (08:17)
[2022-11-17] MEDS: APIXABAN 5 MG TAB (ELIQUIS) PO SCH (08:17)
[2022-11-17] MEDS: TRIAMCINOLONE ACET 0.1% CREAM 80GM TOP SCH (08:18)
[2022-11-17 08:20] VITALS: BP 144/76
[2022-11-17] MEDS: LOSARTAN 50MG TABLET PO SCH (08:20)
[2022-11-19 09:09] LABS: CHLAMYDIA PNEUMONIAE IgG <1:100 (< 1:100); CHLAMYDIA PNEUMONIAE IgM <1:10 (< 1:10); CHLAMYDIA PSITTACI IgG <1:100 (< 1:100); CHLAMYDIA PSITTACI IgM <1:10 (< 1:10); CHLAMYDIA TRACHOMATIS IgG <1:100 (< 1:100); CHLAMYDIA TRACHOMATIS IgM <1:10 (< 1:10)
== END 2022-11-17 09:59 | disposition home or self-care (01) | DRG 186 ==
LOC: M ED 23:52 → M ED INP 11-14 02:43 → M ICU 11-14 03:52 → M MSPAV 11-16 17:42
PROVIDERS: ADMIT Family Medicine; ATTEND Internal Medicine
PROC: 0W9B30Z Drainage of Left Pleural Cavity with Drainage Device, Percutaneous Approach (ICD-10-PCS; principal; 2022-11-14)
PROC: 0W9B30Z Drainage of Left Pleural Cavity with Drainage Device, Percutaneous Approach (ICD-10-PCS; 2022-11-15)
DX: J90 Pleural effusion, not elsewhere classified (principal); J18.9 Pneumonia, unspecified organism; E87.20 Acidosis, unspecified; I82.411 Acute embolism and thrombosis of right femoral vein; J96.11 Chronic respiratory failure with hypoxia; J44.1 Chronic obstructive pulmonary disease with (acute) exacerbation; J44.0 Chronic obstructive pulmonary disease with (acute) lower respiratory infection; J98.11 Atelectasis; D75.89 Other specified diseases of blood and blood-forming organs; R91.1 Solitary pulmonary nodule; I10 Essential (primary) hypertension; M50.30 Other cervical disc degeneration, unspecified cervical region; L30.9 Dermatitis, unspecified; R25.1 Tremor, unspecified; R07.89 Other chest pain; E11.65 Type 2 diabetes mellitus with hyperglycemia; Z87.891 Personal history of nicotine dependence; Z79.899 Other long term (current) drug therapy

== ENCOUNTER 2023-04-15 10:30 | Day surgery (SDC) | payer MEDICARE ==
[~2023-04-15] VITALS: Ht 170.2 cm; Wt 80.5 kg
[~2023-04-15 10:30] MED LIST changes: +ALBU8.5H INH; +AMOX875T2 PO; +BREO1INH3 INH; +ELIQ5TAB PO; +INCR1INH INH; -ISOVUE-370 76% 100ML VIAL (Q9967) As Ordered ONE; +LOSA50TA28 PO
[2023-04-15] MEDS: OFLOXACIN 0.3 % (OCUFLOX) OPTH SOL 5ML OD SCH (10:47)
[2023-04-15] MEDS: PROPARACAINE 0.5% OPHTH SOL 15ML OD ONE (10:47)
[2023-04-15] MEDS: PHENYLEPHRINE 2.5% OPHTH SOL 2ML OD SCH (10:48)
[2023-04-15] MEDS: CYCLOPENTOLATE 1% OPHTH SOLN 2ML BTL OD SCH (10:48)
[2023-04-15] MEDS: TROPICAMIDE 1% OPHTH SOLN 15ML OD SCH (10:48)
[2023-04-15] MEDS ORDERED: fentaNYL 100 MCG/2 ML INJECTION As Ordered ONE (11:46)
[2023-04-15] MEDS ORDERED: MIDAZOLAM INJ 2MG/2ML VIAL As Ordered ONE (11:46)
[2023-04-15] MEDS: LIDOCAINE 1% SDV 5ML VIAL As Ordered ONE (11:49)
[2023-04-15] MEDS: CEFUROXIME 1MG/0.1ML INTRACAMERAL INJ As Ordered ONE (11:49)
[2023-04-15] MEDS: BSS IRR 500ML/OMIDRIA 4ML IRR BAG (OR ONLY) As Ordered ONE (11:52)
[2023-04-15 12:00] VITALS: BP 142/77; TEMP 98.1; O2SAT 95
[2023-05-07] MEDS ORDERED: ELIQ5TAB PO (08:18)
== END 2023-04-15 12:24 | disposition home or self-care (01) ==
LOC: M SDC 10:30
PROVIDERS: ATTEND Ophthalmology
DX: H25.11 Age-related nuclear cataract, right eye (principal); Z79.899 Other long term (current) drug therapy; Z87.891 Personal history of nicotine dependence
CPT/HCPCS: 66984; J0697; J1097; J2250; J3010; V2632

== ENCOUNTER 2023-05-13 11:04 | Day surgery (SDC) | payer MEDICARE ==
[~2023-05-13] VITALS: Ht 170.2 cm; Wt 77.7 kg
[~2023-05-13 11:04] MED LIST changes: +fentaNYL 100 MCG/2 ML INJECTION As Ordered ONE
[2023-05-13] MEDS: TROPICAMIDE 1% OPHTH SOLN 15ML OS SCH (11:58)
[2023-05-13] MEDS: PHENYLEPHRINE 2.5% OPHTH SOL 2ML OS SCH (11:58)
[2023-05-13] MEDS: OFLOXACIN 0.3 % (OCUFLOX) OPTH SOL 5ML OS SCH (11:58)
[2023-05-13] MEDS: PROPARACAINE 0.5% OPHTH SOL 15ML OS ONE (11:59)
[2023-05-13] MEDS: ATROPINE SULFATE 1% OPHTH SOLN 2ML BTL OS SCH (11:59)
[2023-05-13] MEDS: LIDOCAINE 1% SDV 5ML VIAL As Ordered ONE (13:22)
[2023-05-13] MEDS: CEFUROXIME 1MG/0.1ML INTRACAMERAL INJ As Ordered ONE (13:22)
[2023-05-13] MEDS: BSS IRR 500ML/OMIDRIA 4ML IRR BAG (OR ONLY) As Ordered ONE (13:23)
[2023-05-13 13:29] VITALS: BP 192/90; TEMP 97; O2SAT 98
== END 2023-05-13 13:52 | disposition home or self-care (01) ==
LOC: M SDC 11:04
PROVIDERS: ATTEND Ophthalmology
DX: H25.12 Age-related nuclear cataract, left eye (principal); I10 Essential (primary) hypertension; Z86.718 Personal history of other venous thrombosis and embolism; J44.9 Chronic obstructive pulmonary disease, unspecified; Z79.899 Other long term (current) drug therapy; Z79.01 Long term (current) use of anticoagulants; Z79.51 Long term (current) use of inhaled steroids; Z87.891 Personal history of nicotine dependence
CPT/HCPCS: 66984; J0697; J1097; J3010; V2632

== ENCOUNTER → 2023-05-26 | Outpatient (CLI) | payer MEDICARE ==
[~2023-05-26] MED LIST changes: -fentaNYL 100 MCG/2 ML INJECTION As Ordered ONE
== END ==
LOC: M PLAIMG 10:51
PROVIDERS: ATTEND Internal Medicine Pulmonary Disease
DX: R91.8 Other nonspecific abnormal finding of lung field (principal)

== ENCOUNTER → 2023-06-09 | Outpatient (REF) | payer MEDICARE ==
[2023-06-09 17:05] LABS: BASO # 0.1 10^3/uL (0.0-0.2); BASO % 0.8 % (0.0-1.0); EOS # 0.4 10^3/uL (0.0-0.5); EOS % 4.3 % (0.0-3.0); HEMATOCRIT 45.4 % (42.0-52.0); HEMOGLOBIN 15.9 g/dl (13.5-17.5); LYMPH # 1.6 10^3/uL (1.5-5.0); LYMPH % 16.7 % (24.0-44.0); MEAN CORPUSCULAR HEMOGLOBIN 34.3 pg (27.0-33.0); MEAN CORPUSCULAR VOLUME 98.1 fl (80.0-96.0); MONO # 1.3 10^3/uL (0.0-0.8); MONO % 12.8 % (2.0-8.0); NEUTROPHILS # 6.4 10^3/uL (1.5-8.5); NEUTROPHILS % 64.7 % (36.0-66.0); PLATELET COUNT, AUTOMATED 175 10^3/uL (150-450); RED BLOOD COUNT 4.63 10^6/uL (4.30-6.10); WHITE BLOOD COUNT 9.8 10^3/uL (4.0-10.0)
[2023-06-09 17:13] LABS: ALBUMIN 3.8 G/DL (3.2-5.2); ALKALINE PHOSPHATASE 70 U/L (46-116); ALT/SGPT 45 U/L (7.0-40); AST/SGOT 35 U/L (<34); BILIRUBIN,TOTAL 0.7 MG/DL (0.3-1.2); BLOOD UREA NITROGEN 16 MG/DL (9-23); CALCIUM LEVEL 9.2 MG/DL (8.3-10.6); CARBON DIOXIDE LEVEL 24 MMOL/L (20-31); CHLORIDE LEVEL 107 MMOL/L (98-107); CHOLESTEROL LEVEL 158 MG/DL (<200); CHOLESTEROL RISK RATIO 3.39 (<5); GLOMERULAR FILTRATION RATE > 60.0 (>42); GLUCOSE, FASTING 113 MG/DL (74-106); HDL CHOLESTEROL 46.6 MG/DL (>40); LDL CHOLESTEROL 82.2 MG/DL (<100); NON-HDL-C 111.4 MG/DL; POTASSIUM SERUM 4.2 MMOL/L (3.5-5.1); SODIUM LEVEL 139 MMOL/L (136-145); TOTAL PROTEIN 7.3 G/DL (5.7-8.2); TRIGLYCERIDES LEVEL 146 MG/DL (<150)
[2023-06-09 17:15] LABS: FREE T4 0.91 NG/DL (0.89-1.76)
[2023-06-09 17:16] LABS: THYROID STIMULATING HORMONE 4.329 uIU/ML (0.55-4.78)
[2023-06-09 17:27] LABS: HEMOGLOBIN A1c 6.5 % (4.0-6.0)
== END ==
LOC: M SFHCCLAY 14:01
PROVIDERS: ATTEND Nurse Practitioner Family
DX: Z00.00 Encounter for general adult medical examination without abnormal findings (principal); D75.89 Other specified diseases of blood and blood-forming organs; I82.409 Acute embolism and thrombosis of unspecified deep veins of unspecified lower extremity; I10 Essential (primary) hypertension; L30.8 Other specified dermatitis; J44.9 Chronic obstructive pulmonary disease, unspecified; R91.1 Solitary pulmonary nodule; R73.03 Prediabetes

== ENCOUNTER → 2023-10-23 | Outpatient (CLI) | payer MEDICARE, MEDICAID | LOC: M RAD 15:45 | PROVIDERS: ATTEND Internal Medicine Pulmonary Disease | DX: R91.8 Other nonspecific abnormal finding of lung field (principal); J44.9 Chronic obstructive pulmonary disease, unspecified ==

== ENCOUNTER → 2024-11-19 | Outpatient (CLI) | payer MEDICARE, MEDICAID | LOC: M RAD 14:08 | PROVIDERS: ATTEND Internal Medicine Pulmonary Disease | DX: Z87.891 Personal history of nicotine dependence (principal) ==